=== PATIENT | female | born 1990 | race Caucasian/White ===

== ENCOUNTER → 2020-05-19 08:14 | Outpatient (BNVA) | payer OTHER, SELFPAY | PROVIDERS: PCP Internal Medicine; Visit Provider Internal Medicine Gastroenterology | DX: Z76.89 Persons encountering health services in other specified circumstances (principal) | CPT/HCPCS: 91110 ==

== ENCOUNTER 2020-05-26 14:15 | Outpatient (REF) | payer OTHER, SELFPAY ==
[2020-05-26 15:06] LABS: MANUAL DIFF FLAG NO
[2020-05-26 15:07] LABS: Basophils Percent Auto 0.6 % (0-2); Eosinophils Absolute Auto 0.2 X10*3/uL (0.0-0.4); Eosinophils Percent Auto 3.2 % (0-4); Hemoglobin 13.8 g/dl (12.0-16.0); Imm Gran Abs Auto 0.01 X10*3/uL (0.00-0.03); Imm Gran Pct Auto 0.2 % (0.0-0.4); Lymphocytes Absolute Auto 1.5 X10*3/uL (1.2-4.9); Lymphocytes Percent Auto 24.6 % (20-40); Mean Corpuscular HGB Conc 33.7 g/dl (31.0-35.0); Mean Corpuscular Hemoglobin 32.4 pg (27.0-33.0); Mean Corpuscular Volume 96.2 fL (80-98); Mean Platelet Volume 11.5 fL (9.4-12.3); Monocytes Absolute Auto 0.4 X10*3/uL (0.1-1.2); Monocytes Percent Auto 6.1 % (2-11); Neutrophils Absolute Auto 4.1 X10*3/uL (2.0-8.3); Neutrophils Percent Auto 65.3 % (45-73); Platelet Count 230 X10*3/uL (160-400); Red Blood Count 4.26 X10*6/uL (4.20-5.50); Red Cell Distribution Width 11.9 % (11.0-16.0); White Blood Count 6.2 X10*3/uL (4.8-10.8)
[2020-05-26 15:24] LABS: C Reactive Protein 0.02 mg/dL (< or = 0.50)
[2020-05-26 15:46] LABS: Ferritin 84 ng/mL (10-122)
[2020-05-26 17:02] LABS: Anion Gap 14 (12-20); Blood Urea Nitrogen 14 mg/dL (9-16); Calcium 8.8 mg/dL (8.4-10.2); Carbon Dioxide 27 mmol/L (22-29); Chloride 112 mmol/L (96-108); Estimated Glomerular Filt Rate > 60; Glucose Random 92 mg/dL (60-115); Potassium 4.7 mmol/l (3.3-5.1); Sodium 148 mmol/L (135-145)
== END 2020-05-26 14:16 | disposition home or self-care (01) ==
LOC: HO.LAB 14:15
PROVIDERS: PCP Internal Medicine; Visit Provider Internal Medicine Gastroenterology
DX: K52.9 Noninfective gastroenteritis and colitis, unspecified (principal)
CPT/HCPCS: 36415; 80048; 82728; 85025; 86140

== ENCOUNTER → 2020-06-03 11:18 | Outpatient (BNVA) | payer OTHER, SELFPAY | PROVIDERS: PCP Internal Medicine; Referring Provider Internal Medicine; Visit Provider Internal Medicine Gastroenterology | DX: Z76.89 Persons encountering health services in other specified circumstances (principal) ==

== ENCOUNTER 2020-09-09 09:18 | Outpatient (REF) | payer OTHER, SELFPAY ==
--- NOTE | 2020-09-09 09:27 | MR_ITS ---
EXAMINATION: MR ENTEROGRAPHY/MR OF THE ABDOMEN AND PELVIS WITH AND WITHOUT CONTRAST CLINICAL INFORMATION: Noninfected gastroenteritis and colitis, unspecified COMPARISON: Previous MR enterography exam April 2020 TECHNIQUE: Sagittal, axial and coronal sequences through the abdomen and pelvis with and without contrast. Patient received 6.5 mL of Gadavist contrast. FINDINGS: The previously identified wall thickening and transmural enhancement of the terminal ileum on April 2020 exam is no longer appreciated. The small and large bowel is unremarkable. No bowel wall thickening, enhancement, dilatation or stricture, fistula, prominent vasculature, adenopathy or abscess is seen. The stomach is unremarkable. The appendix is unremarkable. The lung bases are clear. There is a small cyst in the right lobe of the liver. The liver is otherwise unremarkable. The gallbladder, spleen, pancreas, adrenal glands and kidneys are unremarkable. There is an IUD in the uterus. The uterus and adnexa are otherwise unremarkable. The bladder is unremarkable. No hernia is seen. Vascular structures are unremarkable. No ascites or adenopathy is seen. Bony structures are unremarkable. MR/MR pelvis wo/w con IMPRESSION: Small liver cyst. IUD in the uterus. Otherwise unremarkable exam. No evidence of inflammatory bowel disease.
--- NOTE | 2020-09-09 09:27 | MR_ITS ---
EXAMINATION: MR ENTEROGRAPHY/MR OF THE ABDOMEN AND PELVIS WITH AND WITHOUT CONTRAST CLINICAL INFORMATION: Noninfected gastroenteritis and colitis, unspecified COMPARISON: Previous MR enterography exam April 2020 TECHNIQUE: Sagittal, axial and coronal sequences through the abdomen and pelvis with and without contrast. Patient received 6.5 mL of Gadavist contrast. FINDINGS: The previously identified wall thickening and transmural enhancement of the terminal ileum on April 2020 exam is no longer appreciated. The small and large bowel is unremarkable. No bowel wall thickening, enhancement, dilatation or stricture, fistula, prominent vasculature, adenopathy or abscess is seen. The stomach is unremarkable. The appendix is unremarkable. The lung bases are clear. There is a small cyst in the right lobe of the liver. The liver is otherwise unremarkable. The gallbladder, spleen, pancreas, adrenal glands and kidneys are unremarkable. There is an IUD in the uterus. The uterus and adnexa are otherwise unremarkable. The bladder is unremarkable. No hernia is seen. Vascular structures are unremarkable. No ascites or adenopathy is seen. Bony structures are unremarkable. MR/MR abdomen wo/w con IMPRESSION: Small liver cyst. IUD in the uterus. Otherwise unremarkable exam. No evidence of inflammatory bowel disease.
== END 2020-09-09 09:19 | disposition home or self-care (01) ==
LOC: HO.MRI 09:18
PROVIDERS: Visit Provider Internal Medicine Gastroenterology
DX: K52.9 Noninfective gastroenteritis and colitis, unspecified (principal)
CPT/HCPCS: 72197; 74183; A9585

== ENCOUNTER → 2020-11-18 10:42 | Outpatient (BNVA) | payer OTHER, SELFPAY | PROVIDERS: PCP Internal Medicine; Visit Provider Internal Medicine Gastroenterology ==

== ENCOUNTER → 2021-03-06 09:15 | Outpatient (BNVA) | payer OTHER, SELFPAY | PROVIDERS: PCP Internal Medicine; Visit Provider Internal Medicine Gastroenterology ==

== ENCOUNTER 2021-03-24 09:03 | Outpatient (REF) | payer OTHER, SELFPAY ==
--- NOTE | ~2021-03-24 | MR_ITS ---
EXAMINATION: MR ENTEROGRAPHY ABDOMEN AND PELVIS WITHOUT AND WITH CONTRAST CLINICAL INFORMATION: K52.9 - Noninfective gastroenteritis and colitis, unspecified. Changes terminal ileum on initial MR 2019. COMPARISON: MR abdomen and pelvis 05/06/2020 and 09/09/2020 TECHNIQUE: MR abdomen and MR pelvis are performed without and with use of 6.5 mL intravenous Gadavist gadolinium contrast. Imaging is performed in 3 planes. Patient had 1.5 L of oral Breeza prior to imaging. FINDINGS: LUNG BASES: The visualized lung bases are unremarkable. LIVER, GALLBLADDER, AND BILIARY TREE: Liver is normal in size, smooth in contour, and normal in signal. There is no signal loss on out of phase imaging to suggest hepatic steatosis. Again, there is a subcentimeter cyst dome right lobe segment 7 with adjacent punctate satellite cyst. No solid enhancing hepatic lesion. The gallbladder is unremarkable with no evidence of gallbladder wall thickening, or obvious pericholecystic inflammatory changes. PANCREAS: Unremarkable. SPLEEN: Normal. ADRENAL GLANDS: Normal. KIDNEYS AND URETERS: The kidneys are normal in size, shape, and enhance symmetrically. No hydronephrosis. No perinephric stranding. GASTROINTESTINAL TRACT: There is no obstruction or focal inflammatory changes in the bowel or mesentery. The terminal ileum appears normal. There is no hyperenhancement, wall thickening, wall edema, or stranding in the mesentery. No focal fibrofatty proliferation. The cecum and appendix are unremarkable. There is no ascites or fluid collection. ABDOMINAL WALL: No significant hernia is appreciated. LYMPH NODES: No lymphadenopathy. VASCULAR: Unremarkable. PELVIS: No adnexal mass or pelvic ascites. OSSEOUS STRUCTURES: Marrow signal normal. MR/MR abdomen wo/w con IMPRESSION: 1. No focal inflammatory changes in bowel or mesentery. Unremarkable terminal ileum. 2. Tiny hepatic cyst.
== END 2021-03-24 09:04 | disposition home or self-care (01) ==
LOC: HO.MRI 09:03
PROVIDERS: PCP Internal Medicine; Visit Provider Internal Medicine Gastroenterology
DX: K52.9 Noninfective gastroenteritis and colitis, unspecified (principal)
CPT/HCPCS: 72197; 74183; A9585

== ENCOUNTER 2021-12-22 11:32 | Outpatient (REF) | payer OTHER, SELFPAY ==
[2021-12-22 13:32] LABS: Hematocrit 39.8 % (37.0-47.0); Hemoglobin 13.2 g/dl (12.0-16.0); Mean Corpuscular HGB Conc 33.2 g/dl (31.0-35.0); Mean Corpuscular Hemoglobin 31.4 pg (27.0-33.0); Mean Corpuscular Volume 94.8 fL (80.0-98.0); Mean Platelet Volume 11.1 fL (9.4-12.3); Platelet Count 266 X10*3/uL (160-400); Red Cell Distribution Width 12.5 % (11.0-16.0); White Blood Count 4.6 X10*3/uL (4.8-10.8)
[2021-12-22 13:39] LABS: Estimated Average Glucose 82 mg/dL; Hemoglobin A1c % 4.5 %
[2021-12-22 13:41] LABS: Alanine Aminotransferase 16 U/L (0-31); Albumin Level 4.2 g/dL (3.5-5.0); Alkaline Phosphatase 57 U/L (39-117); Anion Gap 11 (12-20); Aspartate Amino Transferase 23 U/L (5-31); Bilirubin Total 0.5 mg/dL (0.0-1.0); Blood Urea Nitrogen 13 mg/dL (9-16); C Reactive Protein 0.08 mg/dL (< or = 0.50); Calcium 9.4 mg/dL (8.4-10.2); Carbon Dioxide 26 mmol/L (22-29); Chloride 105 mmol/L (96-108); Estimated Glomerular Filt Rate > 60; Glucose Random 84 mg/dL (60-115); Potassium 4.8 mmol/L (3.3-5.1); Rheumatoid Factor < 15.0 IU/mL (<15.0); Sodium 137 mmol/L (135-145); Total Protein 6.8 g/dL (6.5-8.0)
[2021-12-22 13:58] LABS: Free T4 (Free Thyroxine) 1.08 ng/dL (0.71-1.85); Thyroid Stimulating Hormone 0.73 uIU/mL (0.32-4.0); Vitamin D 25-OH Total 20.7 ng/mL (>30)
[2021-12-22 14:18] LABS: Erythrocyte Sedimentation Rate 4 MM/HR (0-20); Vitamin B12 628 pg/mL (200-900)
[2021-12-24 05:06] LABS: Lyme Abs Screen <0.90 index
[2021-12-24 13:47] LABS: Anti Nuclear Antibody Screen NEGATIVE (NEGATIVE)
[2021-12-28 09:47] LABS: HLA B27 Negative (Negative)
== END 2021-12-22 11:33 | disposition home or self-care (01) ==
LOC: HO.MANLDS 11:32
PROVIDERS: PCP Physician Assistant; Visit Provider Physician Assistant
DX: R53.83 Other fatigue (principal)
CPT/HCPCS: 36415; 80053; 82306; 82607; 82746; 83036; 84439; 84443; 85027; 85652; 86038; 86039; 86140; 86431; 86617; 86618; 86812

== ENCOUNTER 2022-10-01 10:00 | Outpatient (REF) | payer OTHER, SELFPAY ==
[2022-10-01 11:29] LABS: MANUAL DIFF FLAG NO
[2022-10-01 12:02] LABS: Eosinophils Absolute Auto 0.2 X10*3/uL (0.0-0.4); Eosinophils Percent Auto 5.1 % (0-4); Hematocrit 36.2 % (37.0-47.0); Hemoglobin 12.1 g/dl (12.0-16.0); Imm Gran Abs Auto 0.01 X10*3/uL (0.00-0.03); Imm Gran Pct Auto 0.2 % (0.0-0.4); Lymphocytes Absolute Auto 1.5 X10*3/uL (1.2-4.9); Lymphocytes Percent Auto 35.7 % (20-40); Mean Corpuscular HGB Conc 33.4 g/dl (31.0-35.0); Mean Corpuscular Hemoglobin 31.1 pg (27.0-33.0); Mean Corpuscular Volume 93.1 fL (80.0-98.0); Mean Platelet Volume 11.4 fL (9.4-12.3); Monocytes Absolute Auto 0.3 X10*3/uL (0.1-1.2); Monocytes Percent Auto 7.5 % (2-11); Neutrophils Absolute Auto 2.1 x10*3/uL (2.0-8.3); Neutrophils Percent Auto 50.5 % (45-73); Platelet Count 282 X10*3/uL (160-400); Red Blood Count 3.89 X10*6/uL (4.20-5.50); White Blood Count 4.1 X10*3/uL (4.8-10.8)
[2022-10-01 12:34] LABS: Alanine Aminotransferase 16 U/L (0-31); Albumin Level 4.2 g/dL (3.5-5.0); Alkaline Phosphatase 53 U/L (39-117); Anion Gap 13 (12-20); Aspartate Amino Transferase 18 U/L (5-31); Bilirubin Total 0.4 mg/dL (0.0-1.0); Blood Urea Nitrogen 10 mg/dL (9-16); C Reactive Protein < 0.10 mg/dL (< or = 0.50); Calcium 9.2 mg/dL (8.4-10.2); Carbon Dioxide 25 mmol/L (22-29); Chloride 107 mmol/L (96-108); Estimated Glomerular Filt Rate > 60; Glucose Random 78 mg/dL (60-115); Potassium 4.1 mmol/L (3.3-5.1); Sodium 141 mmol/L (135-145); Total Protein 6.4 g/dL (6.5-8.0)
[2022-10-01 12:38] LABS: Erythrocyte Sedimentation Rate 5 MM/HR (0-20)
[2022-10-01 13:06] LABS: Ferritin 144 ng/mL (10-122); Folate 6.3 ng/mL (> or = 4.0); TSH reflex Free T4 0.72 uIU/mL (0.32-4.0); Vitamin B12 833 pg/mL (200-900); Vitamin D 25-OH Total 25.4 ng/mL (>30)
[2022-10-04 23:04] LABS: Transglutaminase Ab IgG <1.0 U/mL; Transglutaminase IgA <1.0 U/mL
[2022-10-05 23:59] LABS: Zinc 57 mcg/dL (60-130)
[2022-10-06 15:45] LABS: Vitamin B6 28.2 ng/mL (2.1-21.7)
[2022-10-06 15:53] LABS: Vitamin A 61 mcg/dL (38-98)
[2022-10-07 05:39] LABS: Alpha-Tocopherol 7.4 mg/L (5.7-19.9); Beta-Gamma Tocopherol 1.3 mg/L (<=4.3)
[2022-10-07 14:38] LABS: Vitamin K1 1320 pg/mL (130-1500)
[2022-10-07 17:13] LABS: Vitamin C 0.9 mg/dL (0.3-2.7)
[2022-10-07 18:33] LABS: Nicotinamide <20 ng/mL; Vit B3 - Nicotinic Acid <20 ng/mL
[2022-10-07 22:43] LABS: Vitamin B5 (Pantothenic Acid) 89 ng/mL (<275)
[2022-10-08 18:09] LABS: Vitamin B1 8 nmol/L (8-30)
== END 2022-10-01 10:01 | disposition home or self-care (01) ==
LOC: HO.LAB 10:00
PROVIDERS: PCP Physician Assistant; Visit Provider Internal Medicine Gastroenterology
DX: R10.33 Periumbilical pain (principal); G89.29 Other chronic pain; K75.81 Nonalcoholic steatohepatitis (NASH); K22.70 Barrett's esophagus without dysplasia; K90.0 Celiac disease; K52.9 Noninfective gastroenteritis and colitis, unspecified
CPT/HCPCS: 36415; 80053; 82180; 82306; 82607; 82728; 82746; 83088; 83520; 83735; 84207; 84425; 84443; 84446; 84590; 84591; 84597; 84630; 85025; 85652; 86003; 86140; 86364

== ENCOUNTER 2022-10-28 14:13 | Outpatient (REF) | payer OTHER, SELFPAY ==
[2022-10-28 16:47] LABS: Adenovirus F 40/41 Not Detected (Not Detect.); Astrovirus Not Detected (Not Detect.); Campylobacter Not Detected (Not Detect.); Cryptosporidium Not Detected (Not Detect.); Cyclospora cayetanensis Not Detected (Not Detect.); E. coli EAEC Not Detected (Not Detect.); E. coli EPEC Not Detected (Not Detect.); E. coli ETEC Not Detected (Not Detect.); E. coli STEC Not Detected (Not Detect.); Entamoeba histolytica Not Detected (Not Detect.); Giardia lamblia Not Detected (Not Detect.); Norovirus GI/GII Not Detected (Not Detect.); Plesiomonas shigelloides Not Detected (Not Detect.); Rotavirus A Not Detected (Not Detect.); Salmonella Not Detected (Not Detect.); Sapovirus Not Detected (Not Detect.); Shigella sp./EIEC Not Detected (Not Detect.); Vibrio Not Detected (Not Detect.); Vibrio Cholerae Not Detected (Not Detect.); Yersinia enterocolitica Not Detected (Not Detect.)
[2022-10-28 17:11] LABS: CDiff Gene PCR NEGATIVE (Negative)
[2022-11-03 19:03] LABS: Fecal Fat Qualitative NORMAL (NORMAL)
[2022-11-05 23:00] LABS: Lactoferrin, Fecal, Quant. <6.25 mcg/mL (<7.25)
[2022-11-06 16:59] LABS: Pancreatic Elastase-1 >500 mcg/g
== END 2022-10-28 14:14 | disposition home or self-care (01) ==
LOC: HO.LNP 14:13
PROVIDERS: Visit Provider Internal Medicine Gastroenterology
DX: K52.9 Noninfective gastroenteritis and colitis, unspecified (principal); K90.0 Celiac disease; K22.70 Barrett's esophagus without dysplasia
CPT/HCPCS: 82656; 82705; 83631; 87493; 87507